=== PATIENT | male | born 1965 | race Caucasian/White ===

== ENCOUNTER 2019-02-24 10:11 | Emergency (ER) | payer OTHER, SELFPAY ==
[2019-02-24 10:12] VITALS: BP 144/88; PULSE 76; RESP 16; TEMP 36.7; O2SAT 98; BMI 24.3
--- NOTE | 2019-02-24 10:50 | RAD_ITS ---
STUDY: X-RAY CHEST REASON FOR EXAM: Male, 53 years old. Syncopal episode. TECHNIQUE: Single AP portable view of the chest. COMPARISON: None. FINDINGS: EKG electrodes are seen. Hyperinflation. Mild degree of increased markings in the lingular segment of the left upper lobe suggestive of atelectasis and/or early infiltrate. There is no demonstrated pleural abnormality. Normal size heart. Normal mediastinum and maira. Normal visualized pulmonary arteries. Normal visualized aortic arch and descending thoracic aorta. Normal visualized thoracic spine. Normal visualized ribs, clavicles, and shoulders. There is no demonstrated abnormality of the visualized soft tissue structures of the upper abdomen. RAD/Chest 1 View (Portable) IMPRESSION: Mild degree of increased markings in the lingular segment of the left upper lobe. This may represent either atelectasis and/or early infiltrate. Electronically Signed: Mejia Shah, at 11:20 EDT , Service support ,
--- NOTE | 2019-02-24 10:50 | EKG12_ITS ---
Test Reason : SYNCOPE Blood Pressure : / mmHG Vent. Rate : 062 BPM Atrial Rate : 062 BPM P-R Int : 174 ms QRS Dur : 090 ms QT Int : 394 ms P-R-T Axes : 067 078 042 degrees QTc Int : 399 ms Normal sinus rhythm Normal ECG Confirmed by ROCIO ALTAMIRANO ([id number]), digital editor YANET DUQUE ([id number]) on 02/28/2019 12:27:18 PM Referred By: STEVEN Confirmed By:ROCIO ALTAMIRANO
--- NOTE | 2019-02-24 10:50 | CT_ITS ---
STUDY: CT BRAIN WITHOUT CONTRAST REASON FOR EXAM: Male, 53 years old. Syncopal episode. RADIATION DOSAGE (If Supplied By Facility): CTDIvol = ( 44.99 ) mGy, DLP = ( 779.24 ) mGycm TECHNIQUE: Transaxial CT imaging of the brain was performed without administration of intravenous contrast material. Individualized dose optimization techniques were used for this CT. COMPARISON: No relevant priors. FINDINGS: Normal soft tissue structures. Normal calvarium. Normal size ventricles and extra-axial spaces for the patient's age. Normal white matter tracts of the cerebral hemispheres. Normal basal ganglia and thalami. Normal brainstem. Normal cerebellum. There is no intracranial hemorrhage. There are no findings of an acute ischemic infarction. Normal visualized paranasal sinuses. CT/Brain/Head without Contrast IMPRESSION: Normal unenhanced CT scan of the brain. Electronically Signed: Mejia Shah, at 11:21 EDT , Service support ,
--- NOTE | 2019-02-24 10:52 | ED.DCSUM_ITS ---
- ER Visit Summary Date of Service: 02/24/19 Chief Complaint: Near syncope History of Present Illness: The patient is a 53 M past medical history of high cholesterol and mild MS for which she is on no medications. 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 He works late last night and just grab some the eat coffee and something at [employer] late last night. He had some mild nausea. He said his been hot day been working a lot lately with many projects. And states today he was in a room where there was no air conditioning. He felt warm and felt like he might pass out. He was seated at the time. He denies actually losing consciousness. States he had a mild headache this morning when he woke up. It was not thunderclap. Is not a severe headache. He denies any problems moving his arms or legs. No trouble with his speech. He denies any dysuria. No vomiting or diarrhea. No melena. No chest pain or shortness of breath. No fever. Physical Examination: Well-appearing middle-aged male. Vital signs are stable afebrile. Initial blood pressure 144/88. Pulse ox 90% room air no signs of hypoxia.. He is in no distress. Patient is in good shape. H EENT exam normal. Pupils are unreactive light. No facial droop. No trauma. Neck nontender. No lymphadenopathy. Lungs clear to auscultation bilaterally. Heart regular rhythm rate about 75 no murmur. Chest were nontender. Abdomen soft nontender. Normal bowel sounds no peritoneal signs. Patient is moving all 4 extremities. Neurovascularly intact. No edema. Calves are nontender without cords. 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 Fingertip to nose within normal limits. Dorsi plantarflexion intact. Neurologic exam his NIH is 0. He has no focal motor or sensory deficits. Test Results: X-ray portable one view shows no acute abnormality. Mild atelectasis. Read both by myself and the radiologist. CT of the brain read as normal. Read by the radiologist reviewed by me. EKG sinus rhythm rate 66 no acute signs of CA or ischemia. No dysrhythmia. CBC normal. Chemistries normal. Normal creatinine and gap. Troponin normal. Orthostatic vital signs were normal. He did not have any significant change in his blood pressure nor did he have any lightheadedness or dizziness. Emergency Department Course and Treatment: Patient with near syncope however has a normal exam. Repeat exam at 1443 patient is doing well. He feels condyle being discharged home. We went over all his test results. Treatment Plan: Fluids and rest. Return if worse. Follow-up as needed. Disposition: Discharge Impression: Acute near syncope This note was generated with [employer] dictation software. It may contain incorrect words, spelling, and punctuation that were not noted in review of the chart prior to signing
[2019-02-24 11:00] LABS: Absolute Lymphocyte Count 2.26 X10^3/uL (0.83-4.51); Absolute Neutrophil Count 5.9 X10^3/uL (2.0-7.7); Basophil# 0.05 X10^3/uL; Basophil% 0.6 % (0-1); Eosinophil# 0.06 X10^3/uL; Eosinophils% 0.7 % (0-5); Hematocrit 52.6 % (40-54); Hemoglobin 17.6 g/dL (13.0-16.5); Lymphocyte # 2.26 X10^3/ul (4.0); Lymphocyte % 25.1 % (19-41); Mean Corp Hgb Conc 33.5 g/dL (32-36); Mean Corpuscular Hgb 31.8 pg (27.0-32.0); Mean Corpuscular Volume 95.1 fL (80-94); Mean Platelet Vol. 9.2 fl (6.2-12.0); Monocyte# 0.72 X10^3/uL; NRBC Flagged by Analyzer 0 % (0-5); Neutrophil # 5.87 X10^3/uL (2.7-7.7); Neutrophil % 65.3 % (47-70); Platelet Count 242 K/mm3 (150-450); RBC Distribution Width CV 13.1 % (11.6-14.6); RBC Distribution Width SD 46.3 fl (35.1-43.9); Red Blood Count 5.53 M/mm3 (4.6-6.2)
[2019-02-24 11:12] LABS: Anion Gap 4 (5-15); BUN 10 mg/dL (7-18); BUN/Creat Ratio 7.9 RATIO (10-20); Calcium,Total 9.2 mg/dL (8.5-10.1); Chloride 105 mmol/L (98-107); Creatinine, Serum 1.26 mg/dL (0.70-1.30); EST Glomerular Filtration Rate 63 mL/min (>60); Est Glom Filt Rate - Afr Amer 76 mL/min (>60); Estimated Creatinine Clearance 66.24 ml/min; Glucose 118 mg/dL (74-106); Potassium 4.1 mmol/L (3.5-5.1); Sodium Level 137 mmol/L (136-145)
[2019-02-24 11:47] VITALS: BP 119/85; BP 120/88; BP 125/86; PULSE 70; PULSE 78; PULSE 82
[2019-02-24 11:49] VITALS: BP 125/86; PULSE 69; O2SAT 97
[2019-02-24 11:55] VITALS: BP 125/86; PULSE 66; O2SAT 97
[2019-02-24 13:30] VITALS: BP 125/81; PULSE 62; RESP 18
[2019-02-24 14:41] VITALS: BP 126/79; PULSE 72; RESP 14; O2SAT 97
--- NOTE | 2019-02-24 14:45 | ED.DEP ---
ED Disposition - Plan for ED Patient: Disposition: Home or Assisted Living Instructions: NEAR SYNCOPE, Unknown Referrals: Tony Sullivan MD [STAFF PHYSICIAN] - 3-5 Days if not improving Additional Instructions: Your labs, EKG, chest x-ray and CAT scan today were all normal. I think this is secondary to just working a lot lately, being fatigued and being in a warm hot room. Plenty of fluids and rest. Follow-up with a local primary care physician as needed. Return to ER feeling worse.
== END 2019-02-24 14:50 | disposition home or self-care (01) ==
PROVIDERS: Emergency Provider Emergency Medicine
DX: R55 Syncope and collapse (principal); J98.11 Atelectasis; E78.00 Pure hypercholesterolemia, unspecified; G35 Multiple sclerosis; Z79.899 Other long term (current) drug therapy; F17.200 Nicotine dependence, unspecified, uncomplicated
CPT/HCPCS: 70450; 71045; 80048; 84484; 85025; 93005; 99285; A4216

== ENCOUNTER → 2019-06-28 10:21 | Outpatient (CLI) | payer OTHER, SELFPAY ==
--- NOTE | 2019-06-28 10:45 | RAD_ITS ---
STUDY: X-RAY CHEST REASON FOR EXAM: Male, 53 years old. PRE OP. NO CHEST COMPLAINTS. TECHNIQUE: Frontal and lateral views of the chest were performed COMPARISON: None. FINDINGS: The lungs are clear and expanded. There is no demonstrated pleural abnormality. Normal size heart. Normal mediastinum and maira. Normal visualized pulmonary arteries. Normal visualized aortic arch and descending thoracic aorta. Normal visualized thoracic spine. Normal visualized ribs, clavicles, and shoulders. There is no demonstrated abnormality of the visualized soft tissue structures of the upper abdomen. RAD/Chest PA and Lateral IMPRESSION: Normal x-ray examination of the chest. Electronically Signed: Lucy Randle, at 18:51 EST Tel , Service support ,
--- NOTE | 2019-06-28 10:59 | EKG12_ITS ---
Test Reason : PRE-OP Blood Pressure : / mmHG Vent. Rate : 066 BPM Atrial Rate : 066 BPM P-R Int : 162 ms QRS Dur : 094 ms QT Int : 388 ms P-R-T Axes : 067 076 036 degrees QTc Int : 406 ms Normal sinus rhythm Incomplete right bundle branch block Confirmed by FRAN RODRIGUEZ, ALAN ([id number]), assistant film editor SAWYER MALONE ([id number]) on 06/29/2019 9:04:13 AM Referred By: Patrick Chester Confirmed By:ALAN PETERS MD
[2019-06-28 12:48] LABS: Absolute Lymphocyte Count 2.45 X10^3/uL (0.83-4.51); Absolute Neutrophil Count 3.4 X10^3/uL (2.0-7.7); Basophil# 0.04 X10^3/uL; Basophil% 0.6 % (0-1); Eosinophil# 0.11 X10^3/uL; Eosinophils% 1.7 % (0-5); Hematocrit 49.3 % (40-54); Hemoglobin 16.7 g/dL (13.0-16.5); Lymphocyte # 2.45 X10^3/ul (4.0); Lymphocyte % 37.4 % (19-41); Mean Corp Hgb Conc 33.9 g/dL (32-36); Mean Corpuscular Hgb 31.7 pg (27.0-32.0); Mean Corpuscular Volume 93.5 fL (80-94); Mean Platelet Vol. 9.7 fl (6.2-12.0); Monocyte# 0.58 X10^3/uL; Monocyte% 8.9 % (0-10); NRBC Flagged by Analyzer 0 % (0-5); Neutrophil # 3.35 X10^3/uL (2.7-7.7); Neutrophil % 51.1 % (47-70); Platelet Count 231 K/mm3 (150-450); RBC Distribution Width CV 13.2 % (11.6-14.6); Red Blood Count 5.27 M/mm3 (4.6-6.2); White Blood Count 6.6 K/mm3 (4.4-11.0)
[2019-06-28 13:03] LABS: Hemoglobin A1c 5.9 % (4.2-6.3)
[2019-06-28 13:27] LABS: Anion Gap 5 (5-15); BUN 12 mg/dL (7-18); BUN/Creat Ratio 10.8 RATIO (10-20); Calcium,Total 9.3 mg/dL (8.5-10.1); Chloride 107 mmol/L (98-107); Creatinine, Serum 1.11 mg/dL (0.70-1.30); EST Glomerular Filtration Rate 73 mL/min (>60); Est Glom Filt Rate - Afr Amer 88 mL/min (>60); Glucose 83 mg/dL (74-106); Sodium Level 138 mmol/L (136-145)
[2019-06-28 14:13] LABS: Prothrombin Time (Protime)PT. 13.1 SECONDS (11.7-14.9)
[2019-06-28 14:42] LABS: Partial Thromboplast Time 33.5 Seconds (24.1-36.2)
== END ==
PROVIDERS: Referring Provider Podiatrist Foot & Ankle Surgery; Visit Provider Podiatrist Foot & Ankle Surgery
DX: Z01.811 Encounter for preprocedural respiratory examination (principal); Z01.818 Encounter for other preprocedural examination; Z01.810 Encounter for preprocedural cardiovascular examination
CPT/HCPCS: 36415; 71046; 80048; 83036; 85025; 85610; 85730; 93005

== ENCOUNTER 2019-07-07 09:05 | Day surgery (SDC) | payer OTHER, SELFPAY ==
[2019-07-07] VITALS (8 sets, daily range): BP systolic 87–116; BP diastolic 55–74; PULSE 60–70; RESP 16–18; TEMP 36.3–37.1; O2SAT 94–97; BMI 26.8
--- NOTE | 2019-07-07 09:27 | RAD_ITS ---
STUDY: X-RAY LEFT FOOT, 4 TOE REASON FOR EXAM: Male, 53 years old. 4TH LEFT HAMMER TOE CORRECTION TECHNIQUE: History view(s) of the toe were obtained. COMPARISON: None. FINDINGS: K wire transfixes the fourth PIP joint. Normal visualized metatarsus. Normal metatarsophalangeal (M.T.P) joint. Normal interphalangeal joints. Normal phalanges and interphalangeal joints. The soft tissue structures are unremarkable. RAD/Toe(s) Min 2 Views IMPRESSION: Fixation fourth PIP joint Electronically Signed: Umair Masterson MD at 22:57 EST , Service support ,
[2019-07-07] MEDS: Lactated Ringers 1,000 ML 100 ML IV (09:53)
[2019-07-07] MEDS: Cefazolin 2 GM in 0.9% Normal Saline 100 ML IV (10:58)
[2019-07-07] MEDS: Bupivacaine Mpf 0.5% 30 ML VIAL (12:06)
--- NOTE | 2019-07-07 12:25 | DCINST_ITS ---
Discharge Diet: No Restrictions Discharge Activity: May Not Shower Ice area for (Minutes): 20 Weight Bearing Status: Weight bearing as tolerated - to left foot in CAM boot only Keep extremity elevated above heart level: Left Leg Additional Activity Instructions:: Keep dressing to left foot clean, dry, intact. Do not get dressing wet. Protect dressing when bathing with a cast protector or plastic bag and tape. I recommend sponge bath only. If get dressing wet, call office for dressing change. Do not change dressing. Dressing will be changed in office at postoperative appointment. Ice around the left ankle 20 minutes on, 20 minutes off, every hour while awake for the next 7 days. Elevate left foot above level of heart as much as possible for the next 7 days. Take [id number] pain medication as needed and as directed on bottle. Begin taking antibiotic today, July 07 when getting home. You can walk and stand on left foot as tolerated as long as you are in the cam boot. Keep walking and standing activities to a minimum for the next 14 days. Call your doctor if your incision/area has: Continuous Slow Oozing, Sudden Increased Bleeding, Increased Pain/ Swelling, Increased Redness Call your doctor if you observe: Fever of 101 or Higher, Coldness, Increased Pain, Shortness of breath, Chest pain, Increased palpitations (irregular heartbeat), Calf discomfort, Uncontrolled pain Suture Line Care: Avoid Pulling/Pushing Cleanse incision/area with: Keep Dressing Clean & Dry Allergies/Adverse Reactions: Allergies bee venom protein (honey bee) Allergy (Verified 07/07/19 09:35) Anaphylaxis codeine Adverse Reaction (Verified 07/07/19 09:35) Nausea/Vom/Diarrhea Medications to take at Discharge Atorvastatin Calcium [Lipitor] 5 mg PO QHS 06/30/19 Sildenafil Citrate [Viagra] 100 mg PO PRN PRN 06/30/19 Multivit-Minerals/FA/Lycopene [One Daily Men's Health Tablet] 1 ea PO DAILY 07/07/19 Primary Care Physician: Darling Hogan MD [Primary Care Provider] - Test Results: Test results from this visit will be discussed in further detail at your follow- up appointment, if applicable. Please Follow Up With: Patrick Chester DPM When: as scheduled Proposed Discharge Date: 07/07/19
--- NOTE | 2019-07-07 12:28 | PCM.OPRPT ---
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 Painful hammertoe deformity fourth digit left foot. #2 abductovalgus deformity fourth digit left foot. Post-Operative Diagnosis: Same as preoperative Surgery/Procedure Performed:: 1. Arthroplasty of the proximal interphalangeal joint fourth digit left foot with implant placement for arthrodesis. #2 flexor tenotomy distal interphalangeal joint fourth digit left foot Description of Surgical Findings:: Consistent with diagnosis. Reduction of deformity achieved and held. 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: None Type of Anesthesia:: MAC/Supplemental/Local - With a local block given to the fourth digit of the left lower extremity consisting of 10 mL of 0.5 the Marcaine plain distributed in a ray block fashion to the fourth ray of the left foot Anesthesiologist: Tomasz Andrews Special Medications: 2 g of Ancef given preoperatively Specimen's removed: Head of the proximal phalanx fourth digit left foot Drains: None Estimated Blood Loss (mL): 2 Description of Procedure: Pathology: Head of proximal phalanx of fourth digit left foot Anesthesia: IV sedation with local block given to the left lower extremity consisting of 10 mL 0.5 % Marcaine plain distributed a ray block fashion of the fourth ray of the left foot. Hemostasis: Pneumatic calf tourniquet placed to the level left calf at 250 mmHg for 39 minutes Estimated blood loss: 2 mL Materials: #1. 0.045 K wire. 2. Size 4-0 Vicryl. 3. 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 Upon verbal questioning, patient relates that on March 05, 2019, he was working at his job when he slipped and fell. As he tried to catch himself, his left foot hit the curb outside. He felt immediate pain in his fourth toe. Patient then presented to me for further evaluation. Multiple tests were ordered, including an MRI, xray and an EMG/NCV. These related injury to the fourth toe of the left foot. It was found that there was a rigid hammertoe deformity of the proximal interphalangeal joint of the fourth digit of the left foot along with an adductovarus deformity of the distal interphalangeal joint of the fourth digit of the left foot. Multiple conservative therapies were employed, including but not limited to inserts, strengthening exercises, and walking in a pneumatic cam boot. All of these conservative therapies failed and patient was still experiencing pain. After multiple discussions were had with the patient, it was determined that surgical intervention to fix the deformity of the fourth toe would greatly benefit the patient and help and return to activities of daily living. Operative report: Before the patient was brought to the operating room, the risks, benefits, possible outcomes, possible complications of the procedure discussed with the patient. These included but not limited to DVT, infection, delayed or nonhealing wounds, delayed or nonhealing bone, loss of toe, loss of limb, loss of life. All the patient's questions were answered to his satisfaction and all of his concerns were addressed. No guarantees were made as to the outcome of the procedure. Patient understood all aspects of the procedure, and consent was then signed by the patient. The patient was then brought to the operating room and placed on the operating table in the supine position. After timeout, under IV sedation, 10 mL of 0.5 % Marcaine plain was distributed in a ray block fashion to the fourth ray of the left foot. Next, a well-padded pneumatic calf tourniquet was placed at the level of left calf. The left foot, ankle, leg were then scrubbed, prepped, draped in the usual sterile manner. Elevation of the left lower extremity was followed by exsanguination via Esmarch and inflation pneumatic calf tourniquet to 250 mmHg. Attention was then directed to the dorsal aspect of the fourth digit left foot. At this time, a linear longitudinal incision was made starting the dorsal aspect of the midshaft of the proximal phalanx extending distally to the dorsal aspect of the base of the distal phalanx. This incision was deepened utilizing sharp and blunt dissection. Care was taken to retract all vital neural and vascular structures. All bleeders were cauterized and ligated as necessary. At this time, the proximal to phalangeal joint was then identified. Next, a transverse extensor tenotomy was performed. The extensor tendon was then reflected back proximally. Next, the medial and lateral collateral ligaments were sharply incised. At this time, the head of the proximal phalanx was fully exposed with no soft tissue attachments. Next, the cartilage was resected off the head of the proximal phalanx utilizing a sagittal bone saw. This was then removed from the operative site. Next, the cartilage at the base of the middle phalanx was resected utilizing a sagittal bone saw. This was then removed from the operative site. Cancellus bone was identified in both areas. At this time, a K wire was inserted into the medullary canal of the proximal phalanx. Positioning of this was confirmed upon radiographic evaluation, and care was taken to make sure that was in the center of the medullary canal. Once identified, this K wire was then clipped and the middle phalanx and rest of the fourth digit of the left foot were then placed over the remaining K wire to hold the proximal interphalangeal joint in the corrected position. Radiographic evaluation was then performed. The K wire was noted to hold the proximal interphalangeal joint in the corrected reduced position. Furthermore, the K wire was noted to be centered in the medullary canal of both the middle and the proximal phalanges. The K wire was noted to not be too long or too short. Attention was then directed the dorsal aspect of the distal interphalangeal joint of the surgical site. Next, an extensor tenotomy was performed in the area of the distal interphalangeal joint. Dissection was continued down deep to the level of the flexor tendon. This was then sharply incised. At this time, inspection of the deformity was performed. The hammertoe deformity and the abducted varus deformity was noted to be reduced from preoperative assessment. At this time the surgical site was then irrigated with copious amounts of normal sterile saline. The extensor tendons were reapproximated and coapted utilizing 4-0 Vicryl. The subcutaneous tissue was reapproximated coapted utilizing 4-0 Vicryl. The skin was reapproximated and coapted using 4-0 nylon in a simple interrupted and horizontal mattress fashion. At this time, the pneumatic calf tourniquet was then released and a prompt hyperemic response noted to the entirety of the left lower extremity. Furthermore, hyperemic response noted to the fourth digit of the left foot. Neurovascular status was assessed and deemed intact to the fourth digit of the left foot. At this time, the surgical site was then dressed with Betadine soaked gauze, and a dry sterile dressing consisting of 4 x 4 gauze wrapped with Kerlix. The left foot and ankle were then wrapped with an Marcin bandage. Neurovascular status was assessed again at the end of the application of the dressing was deemed intact of the all digits of the left foot. The patient tolerated the anesthesia and the procedure well and was transported to the PACU with vital signs stable and neurovascular status intact to left lower extremity. After period of postoperative monitoring, patient will be discharged home with written and oral instructions for wound care and follow-up. Grafts/Implants Used: 0.045 K wire - Complications None - Admit VTE Documentation VTE Present on Admission: No VTE Mechan Device Prophylaxis: SCD's VTE Pharm Prophylaxis ordered?: No Reason prophylaxis not ordered:: Procedure Not Indicated
== END 2019-07-07 13:27 | disposition home or self-care (01) ==
LOC: SDC 09:06 → AC 09:07
PROVIDERS: PCP Family Medicine; Referring Provider Podiatrist Foot & Ankle Surgery; Visit Provider Podiatrist Foot & Ankle Surgery
PROC: (CPT 28285; principal; 2019-07-07 10:45)
DX: M20.42 Other hammer toe(s) (acquired), left foot (principal); M20.5X2 Other deformities of toe(s) (acquired), left foot; S97.82XD Crushing injury of left foot, subsequent encounter; S93.492D Sprain of other ligament of left ankle, subsequent encounter; W01.0XXD Fall on same level from slipping, tripping and stumbling without subsequent striking against object, subsequent encounter; E78.00 Pure hypercholesterolemia, unspecified; E66.3 Overweight; Z68.25 Body mass index [BMI] 25.0-25.9, adult; Z79.899 Other long term (current) drug therapy; F17.210 Nicotine dependence, cigarettes, uncomplicated
CPT/HCPCS: 01470; 28285; 73660; 76000; J7120; J2405

== ENCOUNTER → 2019-09-05 08:42 | Outpatient (CLI) | payer OTHER, SELFPAY ==
[2019-07-07 09:39] VITALS: BMI 26.8
--- NOTE | 2019-09-05 08:45 | CT_ITS ---
STUDY: LOW DOSE CT LUNG CANCER SCREENING REASON FOR EXAM: Male, 53 years old. TOBACCO ABUSE, PREV CIGARETTE SMOKER X 30 YRS 1/2 PPD, CURRENTLY SMOKES 2 CIGARS PER DAY. [id number] RADIATION DOSAGE (If Supplied By Facility): CTDIvol = ( 3.02 ) mGy, DLP = ( 118.9 ) mGycm TECHNIQUE: No contrast was administered. Low dose technique was utilized (average mAS-38 and kVp 120). 1.25 mm axial source images with a slice interval of 1.25-mm were reconstructed in lung windows. 2.5 mm axial source images with a slice interval of 2.5-mm were reconstructed in lung windows. 5.0 mm axial source images with a slice interval of 5.0-mm were reconstructed in soft tissue windows. Nodule measured using lung windows on PACS and/or independent workstation with automated measurement of minimum and maximum diameter. Nodule measurement reported as average diameter rounded to the nearest whole number. Growth is defined as an increase ins size of greater than 1.5 mm. COMPARISON: Comparison is made with prior chest radiograph dated June 28, 2019. Emphysema: Mild degree of emphysematous changes worse in the upper lobes and medial aspect of the left upper lobe with bleb formation. Focal increased linear markings in the lingular segment of the left upper lobe laterally. This is suggestive of scarring. Linear density in the posterior medial segment of the right lower lobe suggestive of linear scarring as well. Aorta: Minimal atherosclerotic plaque of the aortic arch. Coronary arteries: Coronary artery calcification. Heart: Not enlarged. Pulmonary artery: Unremarkable. Mediastinal nodes: Small benign appearing mediastinal lymph nodes. CT/Low Dose CT Lung Screening IMPRESSION: Lung-RADS category 2 - Continue annual screening with LDCT in 12 months. IMPORTANT NOTES FOR USE: ACR Lung-RADS Version 1.0 Assessment Categories Release Date: September 19, 2013 Category: Coded 0-4 bases on nodule(s) with highest degree of suspicion. Negative screen is defined as categories 1 and 2; a positive screen is defined as categories 3 and 4. Category 3 and 4A nodules that are unchanged on interval CT should be coded as category 2, and individuals returned to screening in 12 months. Category 4X: Category 3 or 4 nodules with additional imaging findings that increase the suspicion of lung cancer, such as spiculation, GGN that doubles in size in 1 year, enlarged lymph notes, etc. Category Modifiers: S (significant finding unrelated to lung cancer) and C (prior history of treated lung cancer) may be added to the 0-4 Lung-RADS Electronically Signed: Mejia Shah, at 9:45 EDT , Service support ,
== END ==
PROVIDERS: PCP Family Medicine; Referring Provider Family Medicine; Visit Provider Family Medicine
DX: Z12.2 Encounter for screening for malignant neoplasm of respiratory organs (principal)
CPT/HCPCS: G0297

== ENCOUNTER 2020-01-06 11:13 | Emergency (ER) | payer OTHER, SELFPAY ==
[2019-07-07 09:39] VITALS: BMI 26.8
[2020-01-06 11:15] VITALS: BP 134/96; PULSE 67; RESP 16; TEMP 36.4; O2SAT 99; BMI 26.5
--- NOTE | 2020-01-06 11:23 | EKG12_ITS ---
Test Reason : CP Blood Pressure : / mmHG Vent. Rate : 066 BPM Atrial Rate : 066 BPM P-R Int : 168 ms QRS Dur : 102 ms QT Int : 394 ms P-R-T Axes : 070 082 043 degrees QTc Int : 413 ms Normal sinus rhythm with sinus arrhythmia Incomplete right bundle branch block Moderate voltage criteria for LVH, may be normal variant Borderline ECG Confirmed by SIDDHARTHA RODRIGUEZ, ROSALINDA ([id number]), image editor YANET DUQUE ([id number]) on 01/09/2020 2:33:45 PM Referred By: KEYON/LAKSHMI Confirmed By:ROSALINDA CARL MD
[2020-01-06] MEDS: 0.9% Normal Saline 1,000 ML 1000 ML IV (11:27)
[2020-01-06] MEDS: Aspirin 81 MG TAB.CHEW 324 MG PO (11:27)
[2020-01-06 11:28] VITALS: O2SAT 98
--- NOTE | 2020-01-06 11:35 | RAD_ITS ---
STUDY: X-RAY CHEST REASON FOR EXAM: Male, 54 years old. Chest pain TECHNIQUE: Single AP portable view of the chest. COMPARISON: Comparison is made with prior study of 06/28/2019. 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 Stable minimal increased markings at the left lung base suggestive of linear scarring. There is no demonstrated pleural abnormality. Normal size heart. Normal mediastinum and maira. Normal visualized pulmonary arteries. Normal visualized aortic arch and descending thoracic aorta. Normal visualized thoracic spine. Normal visualized ribs, clavicles, and shoulders. There is no demonstrated abnormality of the visualized soft tissue structures of the upper abdomen. RAD/Chest 1 View (Portable) IMPRESSION: Stable mild increased linear markings at the left lung base suggestive of scarring. Electronically Signed: Mejia Shah, at 12:17 EDT , Service support ,
[2020-01-06 11:40] LABS: Absolute Lymphocyte Count 2.61 X10^3/uL (0.83-4.51); Absolute Neutrophil Count 5.3 X10^3/uL (2.0-7.7); Basophil# 0.06 X10^3/uL; Basophil% 0.7 % (0-1); Eosinophil# 0.06 X10^3/uL; Eosinophils% 0.7 % (0-5); Hematocrit 53.4 % (40-54); Lymphocyte # 2.61 X10^3/ul (4.0); Lymphocyte % 30.4 % (19-41); Mean Corp Hgb Conc 33.9 g/dL (32-36); Mean Corpuscular Hgb 32.2 pg (27.0-32.0); Mean Platelet Vol. 9.4 fl (6.2-12.0); Monocyte# 0.58 X10^3/uL; Monocyte% 6.8 % (0-10); NRBC Flagged by Analyzer 0 % (0-5); Neutrophil # 5.26 X10^3/uL (2.7-7.7); Neutrophil % 61.2 % (47-70); Platelet Count 229 K/mm3 (150-450); RBC Distribution Width CV 13.3 % (11.6-14.6); RBC Distribution Width SD 47.4 fl (35.1-43.9); Red Blood Count 5.62 M/mm3 (4.6-6.2); White Blood Count 8.6 K/mm3 (4.4-11.0)
[2020-01-06 11:43] LABS: Hemoglobin 18.1 g/dL (13.0-16.5)
[2020-01-06 11:44] LABS: Differential Indicated SCAN CRITERIA MET
--- NOTE | 2020-01-06 11:45 | ED.VIS.CHEST ---
History of Present Illness Informant: Patient Onset: Days - 3 days Activity at onset: Sleep Timing: Continuous Quality: Sharp, Stabbing Location: Substernal Current Severity: Mild Maximum Severity: Severe Worsened By: Nothing Relieved By: Nothing Associated Symptoms: Negative for: Nausea, Vomiting, Diaphoresis, Dyspnea, Cough, Fever, Lightheadedness, Acid Reflux, Palpitations Narrative: 54-year-old male presents to the emergency department with chest pain. Patient woke up in the middle the night with chest pain 3 days ago and has had consistent pain since that time. It is sharp and stabbing. It does not radiate. It is been constant. Nothing really makes it better or worse. It is not exertional. He denies any associated shortness of breath, lightheadedness, dizziness, nausea or vomiting, leg pain or swelling, hemoptysis, fevers, cough or sick contacts. He had a cardiac catheterization 8 years ago that was negative. 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 He is concerned this may be due to stress. He denies any other review of systems at this time. Prior Similar Symptoms: No Recent Illness/Hospitalization: No CVD Risk Factors: Hypercholesterolemia. Negative for: Hypertension, Diabetes, Family History 1' </=55, Smoking PE Risk Factors: Negative for: Recent Travel/Surgery, Recenet Immobilization, Prior DVT or PE, Cancer, OCP + Smoking + >/=35 TAD Risk Factors: Negative for: Marfan's Syndrome, Hypertension, Family History Chief Complaint: Chest Pain Past Medical History Prior records reviewed: Yes Past Medical History: - - hyperlipidemia Surgical History: no surgical history Lives: With Family Smoking Status: Former smoker Alcohol: Occasional Drugs: None - Allergies and Home Meds Allergies/Adverse Reactions: Allergies bee venom protein (honey bee) Allergy (Verified 01/06/20 11:20) Anaphylaxis codeine Adverse Reaction (Verified 01/06/20 11:20) Nausea/Vom/Diarrhea Primary Care Physician: Darling Hogan MD [Primary Care Provider] - Review of Systems All systems negative except as indicated General: Denies: Chills, Fever, Sweats Eyes: Denies: Visual changes - bilaterally, Diplopia ENT: Denies: Rhinorrhea, Sore throat Cardiovascular: Reports: Chest pain. Denies: Palpitations, Heart racing Respiratory: Denies: Dyspnea, Cough, Sputum, Dyspnea on exertion, Orthopnea, Paroxysmal nocturnal dyspnea Gastrointestinal: Denies: Abdominal pain, Nausea, Vomiting, Diarrhea, Melena, Hematochezia Genitourinary: Denies: Dysuria, Hematuria, Frequency Musculoskeletal: Denies: Back pain, Swelling, Extremity Pain Skin: Denies: Rash, Wounds Neurological: Denies: Headache, Weakness, Parasthesia, Numbness Physical Exam Vital Signs/Narrative: Vital Signs Temp Pulse Resp BP Pulse Ox 01/06/20 11:28 98 01/06/20 11:15 97.6 F L 67 16 134/96 H 99 Inital Vital Signs reviewed: Yes General: Well nourished, Well developed, No Acute Distress Head: Normocephalic, Atraumatic Eyes: Perrl, EOMI ENT: Moist mucous membranes, No rhinorrhea Neck: Supple, Nontender Cardiovascular: Regular rate, Regular rhythm, No murmurs Respiratory: No distress, CTA bilaterally, Chest nontender Abdomen: Soft, Nontender, Nondistended, Normal bowel sounds Back: Nontender, Normal Inspection Extremities: Nontender, No edema, - - Normal palpable pulses all 4 extremities Skin: Normal color, No rash Neurological: Alert, Oriented x3, Cranial nerves II-XII grossly intact, Normal Strength, Normal Sensation Psychological: Normal affect, Normal Mood Diagnostic/Tx/Re-eval Chest X-Ray - ED: 1 View, Read by ED Physician, Read by Radiologist, No Acute Disease Impressions Chest X-Ray 01/06/20 11:35 IMPRESSION: Stable mild increased linear markings at the left lung base suggestive of scarring. Electronically Signed: Mejia Shah, at 12:17 EDT , Service support , 01/06/20 11:35 Chest 1 View (Portable) [RAD] Stat Laboratory Results 01/06/20 01/06/20 01/06/20 11:16 11:16 14:23 WBC 8.6 RBC 5.62 Hgb 18.1 H* Hct 53.4 MCV 95.0 H MCH 32.2 H MCHC 33.9 RDW Std Deviation 47.4 H RDW Coeff of Steve 13.3 Plt Count 229 MPV 9.4 Immature Gran % (Auto) 0.200 Neut % (Auto) 61.2 Lymph % (Auto) 30.4 [place] % (Auto) 6.8 Eos % (Auto) 0.7 Baso % (Auto) 0.7 Absolute Neuts (auto) 5.3 Absolute Lymphs (auto) 2.61 Nucleated RBC % 0 Diff Path Review May foll Sodium 139 Potassium 3.9 Chloride 108 H Carbon Dioxide 27.0 Anion Gap 4 L BUN 6 L Creatinine 1.15 Estim Creat Clear Calc 71.72 Est GFR (MDRD) Af Amer 85 Est GFR (MDRD) Non-Af 70 BUN/Creatinine Ratio 5.2 L Glucose 99 Calcium 9.0 Troponin I < 0.015 < 0.015 - Rhythm Strip Rhythm Strip: Sinus Rhythm Rate: 58 Ectopy: None - EKG Initial EKG Interpretation: Sinus Rhythm, No Acute Injury Pattern Prior: Unchanged Follow-up EKG Interpretation: Sinus Rhythm, No Acute Injury Pattern Prior: Unchanged Treatment: Aspirin Repeat Eval: Pain Free JOHN Risk: No Positive JOHN Elements Score: 0 - Medical Decision Making EKG on arrival sinus rhythm no signs of acute ischemic change. He was given aspirin. CBC BMP and troponin all are unremarkable. Chest x-ray unremarkable. Repeat EKG was unchanged and his second troponin negative. Heart score is 2. Will be discharged home. We will follow-up with his primary care. ED Disposition - Plan for ED Patient: Disposition: Home or Assisted Living Diagnosis: Chest pain Instructions: ED Chest Pain Atypical Unkn Cause Referrals: Darling Hogan MD [Primary Care Provider] -
[2020-01-06 12:03] LABS: Anion Gap 4 (5-15); BUN 6 mg/dL (7-18); BUN/Creat Ratio 5.2 RATIO (10-20); Chloride 108 mmol/L (98-107); Creatinine, Serum 1.15 mg/dL (0.70-1.30); EST Glomerular Filtration Rate 70 mL/min (>60); Est Glom Filt Rate - Afr Amer 85 mL/min (>60); Estimated Creatinine Clearance 71.72 ml/min; Glucose 99 mg/dL (74-106); Potassium 3.9 mmol/L (3.5-5.1); Sodium Level 139 mmol/L (136-145)
[2020-01-06 12:50] VITALS: BP 116/83; PULSE 59; RESP 17; O2SAT 98
--- NOTE | 2020-01-06 13:37 | EKG12_ITS ---
Test Reason : REPEAT Blood Pressure : / mmHG Vent. Rate : 058 BPM Atrial Rate : 058 BPM P-R Int : 180 ms QRS Dur : 094 ms QT Int : 404 ms P-R-T Axes : 065 073 034 degrees QTc Int : 396 ms Sinus bradycardia Incomplete right bundle branch block Minimal voltage criteria for LVH, may be normal variant Borderline ECG Confirmed by SIDDHARTHA RODRIGUEZ, ROSALINDA ([id number]), news assignment editor YANET DUQUE ([id number]) on 01/09/2020 2:33:08 PM Referred By: HAYDEN Confirmed By:ROSALINDA CARL MD
[2020-01-06 14:40] VITALS: BP 129/86; PULSE 74; RESP 16; O2SAT 98
[2020-01-06 15:20] VITALS: BP 131/77; PULSE 59; RESP 18; O2SAT 97
--- NOTE | 2020-01-06 15:20 | ED.RN ---
THIS NURSE REVIEWED D/C INSTRUCTIONS WITH PT AND . PT VERBALIZED UNDERSTANDING OF INSTRUCTIONS. IV D/C. IV CATHETER INTACT. PT TOLERATED WELL. PT DENIES FURTHER NEEDS OR QUESTIONS AT THIS TIME. PT AMBULATES FROM ROOM ON OWN WITHOUT ASSISTANCE FROM STAFF
[2020-01-09 12:28] LABS: Pathologist Review Reviewed
== END 2020-01-06 15:22 | disposition home or self-care (01) ==
PROVIDERS: Emergency Provider Physician Assistant Medical; PCP Family Medicine
DX: R07.9 Chest pain, unspecified (principal); E78.00 Pure hypercholesterolemia, unspecified; Z79.899 Other long term (current) drug therapy; Z87.891 Personal history of nicotine dependence
CPT/HCPCS: 71045; 80048; 84484; 85025; 93005; 96360; 96361; 99285; J7030; A4216

== ENCOUNTER → 2020-02-24 08:27 | Outpatient (CLI) | payer OTHER, SELFPAY ==
[2020-02-24 12:16] LABS: Absolute Lymphocyte Count 1.92 X10^3/uL (0.83-4.51); Absolute Neutrophil Count 5.6 X10^3/uL (2.0-7.7); Basophil# 0.04 X10^3/uL; Basophil% 0.5 % (0-1); Eosinophil# 0.06 X10^3/uL; Eosinophils% 0.7 % (0-5); Hematocrit 52.7 % (40-54); Hemoglobin 17.6 g/dL (13.0-16.5); Lymphocyte # 1.92 X10^3/ul (4.0); Lymphocyte % 23.4 % (19-41); Mean Corp Hgb Conc 33.4 g/dL (32-36); Mean Corpuscular Hgb 31.9 pg (27.0-32.0); Mean Corpuscular Volume 95.5 fL (80-94); Mean Platelet Vol. 9.9 fl (6.2-12.0); Monocyte# 0.58 X10^3/uL; Monocyte% 7.1 % (0-10); NRBC Flagged by Analyzer 0 % (0-5); Neutrophil # 5.58 X10^3/uL (2.7-7.7); Neutrophil % 68.1 % (47-70); Platelet Count 252 K/mm3 (150-450); RBC Distribution Width CV 13.7 % (11.6-14.6); Red Blood Count 5.52 M/mm3 (4.6-6.2); White Blood Count 8.2 K/mm3 (4.4-11.0)
[2020-02-24 12:39] LABS: BUN 10 mg/dL (7-18); Creatinine, Serum 1.16 mg/dL (0.70-1.30); EST Glomerular Filtration Rate 69 mL/min (>60); Glucose 95 mg/dL (74-106)
[2020-02-24 12:40] LABS: AST(SGOT) 15 U/L (15-37); Alanine Aminotransfer ALT/SGPT 22 U/L (16-61); Albumin, Serum 3.8 g/dL (3.2-5.0); Alkaline Phosphatase 95 U/L (45-117); Anion Gap 4 (5-15); BUN/Creat Ratio 8.6 RATIO (10-20); Calcium,Total 8.8 mg/dL (8.5-10.1); Chloride 108 mmol/L (98-107); Cholesterol 248 mg/dL (200); Est Glom Filt Rate - Afr Amer 84 mL/min (>60); Globulin 3.7 g/dL (2.2-4.2); High Density Lipoprotein 43 mg/dL; PSA,Total - Annual Screen 1.04 ng/mL (0.00-4.00); Potassium 4.3 mmol/L (3.5-5.1); Protein, Total 7.5 g/dL (6.4-8.2); Sodium Level 137 mmol/L (136-145); Triglycerides 131 mg/dL; Very Low Density Lipoprotein 26 mg/dL (5-40)
== END ==
PROVIDERS: PCP Family Medicine; Visit Provider Family Medicine
DX: Z00.00 Encounter for general adult medical examination without abnormal findings (principal); E78.5 Hyperlipidemia, unspecified; G35 Multiple sclerosis; N52.9 Male erectile dysfunction, unspecified
CPT/HCPCS: 36415; 80053; 80061; 84153; 85025; G0103

== ENCOUNTER 2020-08-07 09:16 | Outpatient (RCR) | payer OTHER, SELFPAY ==
[2020-08-07] MEDS: COVID-19 VACC, MRNA(PFIZER)/PF 30 MCG/0.3 ML SYRINGE IM (07:07)
[2020-08-28] MEDS: COVID-19 VACC, MRNA(PFIZER)/PF 30 MCG/0.3 ML SYRINGE IM (06:55)
== END 2020-10-30 23:59 ==
LOC: IMMUN 09:16
PROVIDERS: PCP Family Medicine; Visit Provider Family Medicine
DX: Z23 Encounter for immunization (principal)
CPT/HCPCS: 0001A; 0002A; 91300

== ENCOUNTER → 2020-09-18 15:42 | Outpatient (CLI) | payer OTHER, SELFPAY ==
--- NOTE | 2020-09-18 15:48 | CT_ITS ---
STUDY: LOW DOSE CT LUNG CANCER SCREENING REASON FOR EXAM: Male, 54 years old. LUNG CA SCREENING RADIATION DOSAGE (If Supplied By Facility): CTDIvol = ( 3.02 ) mGy, DLP = ( 114.38 ) mGycm TECHNIQUE: No contrast was administered. Low dose technique was utilized (average mAS-38 and kVp 120). 1.25 mm axial source images with a slice interval of 1.25-mm were reconstructed in lung windows. 2.5 mm axial source images with a slice interval of 2.5-mm were reconstructed in lung windows. 5.0 mm axial source images with a slice interval of 5.0-mm were reconstructed in soft tissue windows. Nodule measured using lung windows on PACS and/or independent workstation with automated measurement of minimum and maximum diameter. Nodule measurement reported as average diameter rounded to the nearest whole number. Growth is defined as an increase ins size of greater than 1.5 mm. COMPARISON: Comparison is made with prior examination dated 09/05/2019. NODULES: No suspicious nodules are seen. Emphysema: Hyperinflation. Emphysematous changes. Focal linear scarring is seen in the lingular segment of the left upper lobe. This is pleural based. Stable bulla in the upper lobes. Endobronchial lesion: None Aorta: Atherosclerotic plaque formation of the aortic arch. Coronary arteries: Coronary artery calcification. Heart: Unremarkable Pulmonary artery: Unremarkable Mediastinal nodes: Small benign appearing mediastinal lymph nodes. Other chest and abdominal findings: CT/Low Dose CT Lung Screening IMPRESSION: Lung-RADS category 2 - Continue annual screening with LDCT in 12 months. IMPORTANT NOTES FOR USE: ACR Lung-RADS Version 1.1 Assessment Categories Release Date: 2018 Category: Coded 0-4 bases on nodule(s) with highest degree of suspicion. Negative screen is defined as categories 1 and 2; a positive screen is defined as categories 3 and 4. Category 3 and 4A nodules that are unchanged on interval CT should be coded as category 2, and individuals returned to screening in 12 months. Category 4X: Category 3 or 4 nodules with additional imaging findings that increase the suspicion of lung cancer, such as spiculation, GGN that doubles in size in 1 year, enlarged lymph notes, etc. Category Modifiers: S (significant finding unrelated to lung cancer) Electronically Signed: Mejia Shah MD at 9:41 EDT , Service support ,
== END ==
PROVIDERS: PCP Family Medicine; Referring Provider Family Medicine; Visit Provider Family Medicine
DX: Z12.2 Encounter for screening for malignant neoplasm of respiratory organs (principal)
CPT/HCPCS: 71271

== ENCOUNTER 2021-04-03 09:26 | Emergency (ER) | payer OTHER, SELFPAY ==
[2021-04-03 09:27] VITALS: BP 147/88; PULSE 89; RESP 16; TEMP 36.1; O2SAT 99; BMI 25.1
--- NOTE | 2021-04-03 09:45 | EKG12_ITS ---
Test Reason : CP ANXIETY Blood Pressure : / mmHG Vent. Rate : 078 BPM Atrial Rate : 078 BPM P-R Int : 154 ms QRS Dur : 104 ms QT Int : 372 ms P-R-T Axes : 075 076 037 degrees QTc Int : 424 ms Normal sinus rhythm with sinus arrhythmia Normal ECG Confirmed by FRAN RODRIGUEZ, ALAN ([id number]), online content editor SAWYER MALONE ([id number]) on 04/04/2021 11:36:46 AM Referred By: AMADOU Confirmed By:ALAN PETERS MD
--- NOTE | 2021-04-03 09:47 | EDS_ITS ---
HPI History of Present Illness Chief Complaint: Chest Pain Informant: patient Narrative Narrative: 55-year-old male presents the emergency department for the evaluation of chest pain. Patient has a history of MS and states he believes he is having a flare. He is feeling tightness in his face neck chest leg. He states the vision of his left eye seems different. States he is he was sitting in a meeting began panting with chest discomfort. States that he has some baclofen at home that he takes which seems to help his MS flares but it is very sedating. He notes that during the pandemic work has been extremely stressful as they do not have enough staff. 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 He states he has been getting roughly 3 hours of sleep at night. [facility] Medical History HLD (hyperlipidemia) Multiple sclerosis Home Medications atorvastatin 5 mg PO QHS 06/30/19 [History Last Taken 01/06/20] sildenafil 100 mg PO PRN PRN 06/30/19 [History Last Taken Unknown] multivit with [id number]-OR-[id number] 1 ea PO DAILY 07/07/19 [History Last Taken 01/06/20] baclofen 10 mg PO PRN PRN 04/03/21 [History Last Taken Unknown] methylprednisolone 4 mg PO UD #1 box 04/03/21 [Rx Last Taken Unknown] Allergy/AdvReac Type Severity Reaction Status Date / Time bee venom protein (honey bee) Allergy Anaphylaxis Verified 01/06/20 11:20 codeine AdvReac Nausea/Vom/ Verified 01/06/20 11:20 Diarrhea Social History (Updated 04/03/21 @ 09:[address] Anatoly Mcadams DO) Smoking Status: Current some day smoker tobacco type: cigars substance use type: does not use ROS ROS ED Constitutional Constitutional ED: Denies chills, fever(s) or weight loss Eyes Eyes: Reports change in vision; Denies diplopia ENT ENT ED: Denies ear pain, rhinorrhea or sore throat Cardiovascular Cardiovascular: Reports chest pain; Denies orthopnea, palpitations or racing heartbeat Respiratory/Chest Respiratory/Chest: Reports dyspnea; Denies cough or orthopnea Gastrointestinal Gastrointestinal: Denies abdominal pain, diarrhea, nausea or vomiting Genitourinary Genitourinary ED: Denies dysuria, hematuria or urinary frequency Musculoskeletal Musculoskeletal: Reports myalgias and neck pain; Denies arthralgias Integumentary Denies abscess or rash Neurologic Neurologic: Denies headache(s) or weakness Psychiatric Psychiatric: Denies anxiety, depression, suicidal ideation or suicidal thoughts Endocrine Endocrinology: Denies polydipsia, polyphagia or polyuria Allergic/Immunologic Allergic/Immunologic ED: Denies mouth swelling, tongue swelling or urticaria EXAM Physical Exam Const Vital Signs: 04/03/21 09:27 04/03/21 09:31 Temperature 97 F L Temperature Source Temporal Pulse Rate 89 Respiratory Rate 16 Respiratory Effort Normal Non-Labored Respiratory Pattern Normal Blood Pressure 147/88 H Blood Pressure Mean 107 Pulse Ox 99 Oxygen Delivery Method Room Air Positive well nourished and well developed General Appearance ED: well developed HEENT Reports normocephalic, head/scalp atraumatic, TM's clear and moist mucous membranes Negative for trauma Tympanic Membrane ED: Yes TM's clear Eyes PERRL and EOMs intact bilaterally Neck no lymphadenopathy, supple and no JVD Resp normal respiratory effort and clear to auscultation bilaterally Cardio regular rate, regular rhythm and no murmurs GI normal to inspection, nondistended, normoactive bowel sounds and non-tender Palpation: soft Back/Spine no CVA tenderness and normal ROM Extremity normal to inspection General Extremety ED: Negative for edema General Extremity: Negative for edema Neuro oriented x3 and CN's II-XII intact bilaterally Sensorium / Orientation: alert Motor Exam: strength 5/5 throughout Psych mental status grossly normal Mood & Affect: Negative for depressed or tearful Skin no rashes or lesions noted and no wounds MDM MDM MDM Narrative Medical decision making narrative: Basic blood work showed a leukocytosis of 16.1. In light that he does not have any infectious symptoms is difficult to know exactly what this one-time reading means. I recommended to the patient that he have his family physician repeat the CBC. My interpretation of the chest x-ray is no acute process. Cardiac arevalo he is stable with a normal sinus rhythm with no symptoms concerning features of ACS and a normal troponin. Patient will be is prescribed a short course of methylprednisolone for his MS flare. I would also recommend that he try to rest as much as possible. Lab Data Attestation: I reviewed the patient's lab results. Labs: Laboratory Results - last 24 hr 04/03/21 04/03/21 09:35 09:35 WBC 16.1 H RBC 5.17 Hgb 16.4 Hct 48.0 MCV 92.8 MCH 31.7 MCHC 34.2 RDW Std Deviation 44.5 H RDW Coeff of Steve 13.1 Plt Count 229 MPV 9.4 Immature Gran % (Auto) 0.300 Neut % (Auto) 75.9 H Lymph % (Auto) 16.2 L [place] % (Auto) 7.0 Eos % (Auto) 0.2 Baso % (Auto) 0.4 Absolute Neuts (auto) 12.2 H Absolute Lymphs (auto) 2.61 Nucleated RBC % 0 Sodium 139 Potassium 3.7 Chloride 109 H Carbon Dioxide 23.0 Anion Gap 7 BUN 8 Creatinine 1.02 Estim Creat Clear Calc 79.90 Est GFR (MDRD) Af Amer 97 Est GFR (MDRD) Non-Af 80 BUN/Creatinine Ratio 7.8 L Glucose 117 H Calcium 8.7 Total Bilirubin 0.70 AST 22 ALT 33 Alkaline Phosphatase 106 Troponin I High Sens 6 Total Protein 7.4 Albumin 3.7 Globulin 3.7 Albumin/Globulin Ratio 1.0 EKG Initial EKG: Attestation: I personally reviewed and interpreted this EKG as follows: Comments: Normal sinus rhythm with a ventricular rate of 78 bpm Discharge Plan Triage Chief Complaint: Chest Pain ED Provider: Anatoly Mcadams Dx/Rx/DC Orders Clinical Impression: Multiple sclerosis exacerbation, Chest pain Instructions: Multiple Sclerosis Prescriptions: New methylprednisolone [methylprednisolone] 4 MG tablets,dose pack 4 mg PO UD Qty: 1 RF: 0 No Action atorvastatin 10 MG tablet 5 mg PO QHS RF: 0 sildenafil 100 MG tablet 100 mg PO PRN PRN (Reason: ed) RF: 0 multivit with [id number]-[id number] 1 EACH tablet 1 ea PO DAILY RF: 0 baclofen 10 mg tablet 10 mg PO PRN PRN (Reason: muscles) RF: 0 Primary Care Provider: Darling Hogan Referrals: Darling Hogan MD [Primary Care Provider] - As Needed Disposition Disposition: Home, Self Care
[2021-04-03] MEDS: Ketorolac 30 MG/ML Syringe IV (10:07)
[2021-04-03] MEDS: 0.9% Normal Saline 1,000 ML 1000 ML IV (10:07)
[2021-04-03 10:13] LABS: Absolute Lymphocyte Count 2.61 X10^3/uL (0.83-4.51); Absolute Neutrophil Count 12.2 X10^3/uL (2.0-7.7); Basophil# 0.06 X10^3/uL; Basophil% 0.4 % (0-1); Eosinophil# 0.04 X10^3/uL; Eosinophils% 0.2 % (0-5); Hemoglobin 16.4 g/dL (13.0-16.5); Lymphocyte # 2.61 X10^3/ul (0.83-4.51); Lymphocyte % 16.2 % (19-41); Mean Corp Hgb Conc 34.2 g/dL (32-36); Mean Corpuscular Hgb 31.7 pg (27.0-32.0); Mean Corpuscular Volume 92.8 fL (80-94); Mean Platelet Vol. 9.4 fl (6.2-12.0); Monocyte# 1.13 X10^3/uL; NRBC Flagged by Analyzer 0 % (0-5); Neutrophil # 12.22 X10^3/uL (2.7-7.7); Neutrophil % 75.9 % (47-70); Platelet Count 229 K/mm3 (150-450); RBC Distribution Width CV 13.1 % (11.6-14.6); RBC Distribution Width SD 44.5 fl (35.1-43.9); Red Blood Count 5.17 M/mm3 (4.6-6.2); White Blood Count 16.1 K/mm3 (4.4-11.0)
[2021-04-03 10:33] LABS: AST(SGOT) 22 U/L (15-37); Alanine Aminotransfer ALT/SGPT 33 U/L (16-61); Albumin, Serum 3.7 g/dL (3.2-5.0); Alkaline Phosphatase 106 U/L (45-117); Anion Gap 7 (5-15); BUN 8 mg/dL (7-18); BUN/Creat Ratio 7.8 RATIO (10-20); Calcium,Total 8.7 mg/dL (8.5-10.1); Chloride 109 mmol/L (98-107); Creatinine, Serum 1.02 mg/dL (0.70-1.30); EST Glomerular Filtration Rate 80 mL/min (>60); Est Glom Filt Rate - Afr Amer 97 mL/min (>60); Globulin 3.7 g/dL (2.2-4.2); Glucose 117 mg/dL (74-106); Potassium 3.7 mmol/L (3.5-5.1); Protein, Total 7.4 g/dL (6.4-8.2); Sodium Level 139 mmol/L (136-145); Troponin-I HS 6 pg/mL (3.0-78.0)
--- NOTE | 2021-04-03 10:48 | RAD_ITS ---
STUDY: X-RAY CHEST REASON FOR EXAM: Male, 55 years old. Chest pain TECHNIQUE: Single AP portable view of the chest. COMPARISON: Comparison is made with prior study of 06/28/2019. FINDINGS: There is hyperinflation of the lungs consistent with chronic obstructive lung disease (COPD). Stable mild linear scarring at the left lung base. There is no demonstrated pleural abnormality. Normal size heart. Normal mediastinum and maira. Normal visualized pulmonary arteries. Normal visualized aortic arch and descending thoracic aorta. Normal visualized thoracic spine. Normal visualized ribs, clavicles, and shoulders. There is no demonstrated abnormality of the visualized soft tissue structures of the upper abdomen. RAD/Chest 1 View (Portable) IMPRESSION: Hyperinflation. Stable mild linear scarring at the left lung base. Electronically Signed: Mejia Shah MD at 11:04 EST , Service support ,
[2021-04-03 11:12] VITALS: BP 129/82; PULSE 69; RESP 18; O2SAT 99
== END 2021-04-03 11:14 | disposition home or self-care (01) ==
PROVIDERS: Emergency Provider Emergency Medicine; PCP Family Medicine
DX: G35 Multiple sclerosis (principal); R07.89 Other chest pain; E78.5 Hyperlipidemia, unspecified; F41.9 Anxiety disorder, unspecified; Z79.899 Other long term (current) drug therapy; F17.290 Nicotine dependence, other tobacco product, uncomplicated
CPT/HCPCS: 71045; 80053; 84484; 85025; 93005; 96361; 96374; 99285; J7030

== ENCOUNTER 2021-12-13 06:16 | Day surgery (SDC) | payer BC, SELFPAY ==
[2021-12-13] VITALS (15 sets, daily range): BP systolic 101–120; BP diastolic 59–88; PULSE 55–69; RESP 16–18; TEMP 36.1–37.1; O2SAT 95–98; BMI 23.9
[2021-12-13] MEDS: Lactated Ringers 1,000 ML 15 ML IV (06:52)
--- NOTE | 2021-12-13 07:01 | HP.PCM_ITS ---
[facility] - General General Date of Service: 12/13/21 HPI Narrative CHRIST PINK, is a 55 M who presents for a surveillance colonoscopy today. He states that he will be his third colonoscopy having had 2 previously and each time polyps have been not detected. He believes that his last colonoscopy was done in [place] proximately 5 years ago. He denies abdominal pain bright red blood per rectum or melena. He denies any routine health problems. [facility] Medical History (Updated 12/13/21 @ 07:[address] Ashwin Magaña MD) Anxiety Arthritis COPD (chronic obstructive pulmonary disease) Erectile dysfunction History of echocardiogram History of hip fracture History of irregular heartbeat HLD (hyperlipidemia) Hypotension Lumbar radiculopathy Lung nodule Multiple sclerosis Panic attacks Pelvic fracture Smoker Wears glasses Home Medications sildenafil 100 mg tablet 100 mg PO PRN PRN ed 06/30/19 [History Last Taken Unknown] baclofen 10 mg tablet 10 mg PO PRN PRN muscles 04/03/21 [History Last Taken Unknown] multivitamin 1 tab PO DAILY 12/10/21 [History Last Taken Unknown] rosuvastatin 5 mg tablet 1 tab PO DAILY 12/10/21 [History Last Taken Unknown] Allergy/AdvReac Type Severity Reaction Status Date / Time Penicillins Allergy Severe PT UNSURE Verified 12/13/21 06:41 OF REACTION bee venom protein (honey bee) Allergy Anaphylaxis Verified 12/13/21 06:41 codeine AdvReac Nausea/Vom/ Verified 12/13/21 06:41 Diarrhea Family History Father Heart disease Hypertension High cholesterol Grandfather Aneurysm Skin cancer Grandmother Breast cancer Surgical History (Updated 12/10/21 @ 12:25 by Elsa Lyons) History of cardiac catheterization Hx of colonoscopy Hx of hammer toe correction Hx of left knee surgery Hx of toe surgery Social History household members: spouse current occupational status: employed Smoking Status: Current some day smoker tobacco type: cigars substance use type: does not use seatbelt use: always ROS Constitutional Constitutional: Reports systems reviewed and no addt'l complaints, except as documented Cardiovascular Cardiovascular: Denies chest pain Respiratory/Chest Respiratory/Chest: Denies shortness of breath at rest Gastrointestinal Gastrointestinal: Denies abdominal pain, change in bowel habits, hematochezia or melena Vital Signs Vital Signs Vital Signs: 12/13/21 06:42 12/13/21 06:43 Temperature 98.8 F Temperature Source Temporal Pulse Rate 69 Respiratory Rate 18 Respiratory Pattern Normal Blood Pressure 104/59 L Blood Pressure Mean 74 Blood Pressure Source Monitor Blood Pressure Position Semi-Fowlers Blood Pressure Location Right Arm Pulse Ox 95 Oxygen Delivery Method Room Air Weight Weight: 162 lb 3.2 oz Body Mass Index (BMI) 23.9 Physical Exam Const alert, oriented x3 and no apparent distress General Appearance: cooperative and comfortable Eyes General Eye: normal appearance of both eyes Neck General: normal visual inspection Chest inspection of chest normal Resp Effort and Inspection: able to speak in complete sentences and symmetric chest movement Auscultation: clear to auscultation bilaterally Cardio regular rate and regular rhythm GI soft to palpation, non-tender and non-distended Extremity no calf tenderness Neuro oriented x3 Psych thought process normal Assessment & Plan Assessment/Plan (1) Encounter for screening for malignant neoplasm of colon: (2) Personal history of colonic polyps: PLAN: 55-year-old gentleman with a personal history of colon polyps. I recommend to him a colonoscopy with possible biopsy or polypectomy as indicated. He is aware of the technique, benefit, risk and alternatives. He presents via open access today. We will proceed as noted. Ashwin Magaña M.D., F.A.C.S.
--- NOTE | 2021-12-13 07:30 | COLBX_PTH ---
PATIENT: CHRIST PINK LOC: EN U#:[id number] AGE/SX: 55/M ROOM: RE12/13/[address]: Dr. Ashwin Magaña MD : 1965 BED: DIS: 12/13/2021 SPEC #: [id number] RECD: 12/13/21 13:28 STATUS: MADISON CUELLARMarcellus #: [id number] ROBIN: 12/13/21 07:[address]: Ashwin Magaña DEPT: SURGICAL PATHOLOGY RECD BY: Tatiana Salcedo ENTERED: 12/16/21 11:53 SP TYPE: COLON BX OT DR: Dr. Darling Hogan MD Tissues: A - Descending colon B - Rectum, NOS C - Rectum, NOS Procedures: Surgery Specimen Level IV HEADER OPERATION: Colonoscopy ? open access (MOD) PRE-OP DIAGNOSIS: Screening, history of colonic polyps, TISSUE SUBMITTED: A ? Descending colon biopsy, B ? Rectum biopsy, C ? Rectum biopsy MICROSCOPIC DIAGNOSIS A. Descending colon, biopsy: Fragments of colonic mucosa, no pathologic diagnosis. B. Rectum, biopsy: Fragments of hyperplastic polyp. C. Rectum, biopsy: Fragments of hyperplastic polyp. MC:alexandra 12/17/2021 MICROSCOPIC DESCRIPTION Slides are reviewed. GROSS DESCRIPTION A - Received in fixative is one container labeled with the patient's name and designated biopsy descending colon. The specimen consists of two irregular fragments of light aiken soft tissue that in aggregate measure 0.6 x 0.3 x 0.1 cm. The specimen is totally submitted in one cassette. B - Received in fixative is one container labeled with the patient's name and designated biopsy rectum. The specimen consists of two irregular fragments of light aiken soft tissue that in aggregate measure 0.5 x 0.2 x 0.1 cm. The specimen is totally submitted in one cassette. C - Received in fixative is one container labeled with the patient's name and designated biopsy rectum. The specimen consists of multiple irregular fragments of light aiken soft tissue that in aggregate measure 1.2 x 0.3 x 0.1 cm. The specimen is totally submitted in one cassette. / MC:alexandra 12/16/2021 TC:1 CPT: 56642 x3
[2021-12-13] MEDS: Midazolam 5 MG/ML Syringe (07:35)
[2021-12-13] MEDS: DiphenhydrAMINE 50 MG/ML Syringe (07:50)
--- NOTE | 2021-12-13 08:17 | OP.COLON_ITS ---
Patient Name: Kristopher Morton Procedure Date: 12/13/2021 7:34 AM Date of : 1965 Age: 55 Procedure: Colonoscopy Indications: High risk colon cancer surveillance: Personal history of colonic polyps Providers: Ashwin Magaña MD Medicines: Midazolam 5 mg IV, Meperidine 100 mg IV, Diphenhydramine 12.5 mg IV Patient Profile: Last Colonoscopy: 5 years ago. Complications: No immediate complications. Procedure: Pre-Anesthesia Assessment: - Prior to the procedure, a History and Physical was performed, and patient medications and allergies were reviewed. The patient's tolerance of previous anesthesia was also reviewed. The risks and benefits of the procedure and the sedation options and risks were discussed with the patient. All questions were answered, and informed consent was obtained. Prior Anticoagulants: The patient has taken no previous anticoagulant or antiplatelet agents. ASA Grade Assessment: II - A patient with mild systemic disease. After reviewing the risks and benefits, the patient was deemed in satisfactory condition to undergo the procedure. After I obtained informed consent, the scope was passed under direct vision. Throughout the procedure, the patient's blood pressure, pulse, and oxygen saturations were monitored continuously. The Colonoscope was introduced through the anus and advanced to the cecum, identified by appendiceal orifice and ileocecal valve. The colonoscopy was somewhat difficult due to a tortuous colon. Successful completion of the procedure was aided by increasing the dose of sedation medication and using manual pressure. The patient tolerated the procedure well. The quality of the bowel preparation was fair. Moderate Sedation: Moderate (conscious) sedation was personally administered by the endoscopist. The following parameters were monitored: oxygen saturation, heart rate, blood pressure, and response to care. Total physician intraservice time was 20 minutes. Scope In: 7:42:29 AM Scope Withdrawal Time 0 hours 15 minutes 36 seconds Scope Out: 8:10:14 AM Total Procedure Duration Time 0 hours 27 minutes 45 seconds Findings: The digital rectal exam was normal. A 4 mm polyp was found in the proximal descending colon. The polyp was sessile. The polyp was removed with a cold biopsy forceps. Resection and retrieval were complete. A 5 mm polyp was found in the rectum. The polyp was sessile. The polyp was removed with a cold biopsy forceps. Resection and retrieval were complete. Three sessile polyps were found in the rectum. These polyps were removed with a cold biopsy forceps. Resection and retrieval were complete. Scattered diverticula were found in the sigmoid colon. Impression: - Preparation of the colon was fair. - One 4 mm polyp in the proximal descending colon, removed with a cold biopsy forceps. Resected and retrieved. - One 5 mm polyp in the rectum, removed with a cold biopsy forceps. Resected and retrieved. - Three polyps in the rectum, removed with a cold biopsy forceps. Resected and retrieved. - Diverticulosis in the sigmoid colon. Recommendation: - Discharge patient to home. - Resume previous diet. - Continue present medications. - Repeat colonoscopy in 5 years for surveillance based on pathology results. - Telephone my office for pathology results in 1 week. Consider MAC for next procedure Procedure Code(s): --- Professional --- 88431, Colonoscopy, flexible; with biopsy, single or multiple 83198, 57, Moderate sedation services provided by the same physician or other qualified health rn intensive care unit performing the diagnostic or therapeutic service that the sedation supports, requiring the presence of an independent trained observer to assist in the monitoring of the patient's level of consciousness and physiological status; initial 15 minutes of intraservice time, patient age 5 years or older Diagnosis Code(s): --- Professional --- Z86.010, Personal history of colonic polyps D12.4, Benign neoplasm of descending colon K62.1, Rectal polyp K57.30, Diverticulosis of large intestine without perforation or abscess without bleeding CPT copyright 2017 [employer]. All rights reserved. The codes documented in this report are preliminary and upon it telecom technician review may be revised to meet current compliance requirements. Ashwin Magaña MD 12/13/2021 8:17:10 AM This report has been signed electronically. Number of Addenda: 0 Note Initiated On: 12/13/2021 7:34 AM
--- NOTE | 2021-12-13 08:18 | OP.CCLET_ITS ---
12/13/2021 Darling Hogan [place] [id number] [place] [address] Re : Colonoscopy procedure for Kristopher Morton Dear Dr. Hogan This procedure was performed on Monday, December 13, 2021. My impressions and recommendations are as follows: Impressions : - Preparation of the colon was fair. - One 4 mm polyp in the proximal descending colon, removed with a cold biopsy forceps. Resected and retrieved. - One 5 mm polyp in the rectum, removed with a cold biopsy forceps. Resected and retrieved. - Three polyps in the rectum, removed with a cold biopsy forceps. Resected and retrieved. - Diverticulosis in the sigmoid colon. Recommendations : - Discharge patient to home. - Resume previous diet. - Continue present medications. - Repeat colonoscopy in 5 years for surveillance based on pathology results. - Telephone my office for pathology results in 1 week. Consider MAC for next procedure My findings are described in the full procedure note, which is enclosed. If I can be of further assistance, please feel free to contact me at Doctor phone number(s): Work: . Sincerely, Ashwin Magaña MD 12/13/2021 8:17:10 AM This report has been signed electronically.
== END 2021-12-13 08:57 | disposition home or self-care (01) ==
LOC: EN 06:17 → AC 06:29
PROVIDERS: PCP Family Medicine; Referring Provider Family Medicine; Visit Provider Surgery
PROC: 0DJD8ZZ Inspection of Lower Intestinal Tract, Via Natural or Artificial Opening Endoscopic (ICD-10-PCS; CPT 45378; principal; 2021-12-13 07:25)
DX: Z12.11 Encounter for screening for malignant neoplasm of colon (principal); G35 Multiple sclerosis; J44.9 Chronic obstructive pulmonary disease, unspecified; K62.1 Rectal polyp; Z86.010 Personal history of colon polyps; F41.9 Anxiety disorder, unspecified; M19.90 Unspecified osteoarthritis, unspecified site; E78.5 Hyperlipidemia, unspecified; M54.16 Radiculopathy, lumbar region; Z79.899 Other long term (current) drug therapy; F17.290 Nicotine dependence, other tobacco product, uncomplicated; K57.30 Diverticulosis of large intestine without perforation or abscess without bleeding
CPT/HCPCS: 45380; 88305; 99152; 99153; J7120

== ENCOUNTER → 2022-02-04 | Outpatient (CLI) | payer BC, SELFPAY ==
[2022-02-16 15:07] LABS: Lyme IgG P18 Ab Absent (.); Lyme IgG P23 Ab Absent (.); Lyme IgG P28 Ab Absent (.); Lyme IgG P30 Ab Absent (.); Lyme IgG P39 Ab Absent (.); Lyme IgG P41 Ab Absent (.); Lyme IgG P45 Ab Absent (.); Lyme IgG P58 Ab Absent (.); Lyme IgG P66 Ab Absent (.); Lyme IgG P93 Ab Absent (.); Lyme IgM P23 Ab Present (.); Lyme IgM P39 Ab Absent (.); Lyme IgM P41 Ab Absent (.)
[2022-02-17 08:47] LABS: Lyme IgG WB Interpretation Negative (.); Lyme IgM WB Interpretation Negative (.)
== END | disposition home or self-care (01) ==
LOC: MTLAB 16:05
PROVIDERS: PCP Family Medicine; Referring Provider Family Medicine; Visit Provider Family Medicine
DX: M25.50 Pain in unspecified joint (principal)
CPT/HCPCS: 36415; 86617

== ENCOUNTER → 2022-11-05 | Outpatient (CLI) | payer BC, SELFPAY ==
[2022-11-05 18:12] LABS: Absolute Lymphocyte Count 2.31 X10^3/uL (0.83-4.51); Absolute Neutrophil Count 3.7 X10^3/uL (2.0-7.7); Basophil# 0.03 X10^3/uL; Basophil% 0.4 % (0-1); Eosinophil# 0.09 X10^3/uL; Eosinophils% 1.3 % (0-5); Hematocrit 43.2 % (40-54); Hemoglobin 14.4 g/dL (13.0-16.5); Lymphocyte # 2.31 X10^3/ul (0.83-4.51); Lymphocyte % 33.7 % (19-41); Mean Corp Hgb Conc 33.3 g/dL (32-36); Mean Corpuscular Hgb 31.1 pg (27.0-32.0); Mean Corpuscular Volume 93.3 fL (80-94); Mean Platelet Vol. 10.1 fl (6.2-12.0); Monocyte# 0.72 X10^3/uL; Monocyte% 10.5 % (0-10); NRBC Flagged by Analyzer 0 % (0-5); Neutrophil # 3.69 X10^3/uL (2.7-7.7); Platelet Count 202 K/mm3 (150-450); RBC Distribution Width CV 12.3 % (11.6-14.6); RBC Distribution Width SD 42.3 fl (35.1-43.9); Red Blood Count 4.63 M/mm3 (4.6-6.2); White Blood Count 6.9 K/mm3 (4.4-11.0)
[2022-11-05 19:01] LABS: Anion Gap 5 (5-15); BUN 10 mg/dL (7-18); BUN/Creat Ratio 11.2 RATIO (10-20); Calcium,Total 8.9 mg/dL (8.5-10.1); Chloride 113 mmol/L (98-107); EST Glomerular Filtration Rate 92 mL/min (>60); Est Glom Filt Rate - Afr Amer 112 mL/min (>60); Glucose 130 mg/dL (74-106); Sodium Level 141 mmol/L (136-145)
== END | disposition home or self-care (01) ==
LOC: BFHLAB 14:31
PROVIDERS: PCP Nurse Practitioner Family; Referring Provider Nurse Practitioner Family; Visit Provider Nurse Practitioner Family
DX: R19.7 Diarrhea, unspecified (principal)
CPT/HCPCS: 36415; 80048; 85025

== ENCOUNTER → 2022-11-06 | Outpatient (CLI) | payer BC, SELFPAY | END | disposition home or self-care (01) | LOC: LABSPEC 08:25 | PROVIDERS: PCP Nurse Practitioner Family; Referring Provider Nurse Practitioner Family; Visit Provider Nurse Practitioner Family | DX: R19.7 Diarrhea, unspecified (principal) | CPT/HCPCS: 36415; 83630; 87177; 87209; 87493; 87506 ==

== ENCOUNTER 2022-12-31 15:11 | Emergency (ER) | payer BC, SELFPAY ==
[2022-12-31] VITALS (21 sets, daily range): BP systolic 110–140; BP diastolic 71–93; PULSE 74–89; RESP 14–27; TEMP 36.6; O2SAT 95–100; BMI 24.2
--- NOTE | 2022-12-31 15:42 | EKG12_ITS ---
Test Reason : CP Blood Pressure : / mmHG Vent. Rate : 084 BPM Atrial Rate : 084 BPM P-R Int : 162 ms QRS Dur : 096 ms QT Int : 378 ms P-R-T Axes : 078 087 057 degrees QTc Int : 446 ms Normal sinus rhythm Right atrial enlargement Incomplete right bundle branch block Borderline ECG Confirmed by TANISHA RODRIGUEZ, MAGGIE ([id number]), editorial intern PANDA MELENDEZ ([id number]) on 01/05/2023 8:08:02 AM Referred By: Confirmed By:JUAN RAMON GARAY MD
--- NOTE | 2022-12-31 15:45 | RAD_ITS ---
STUDY: X-RAY CHEST REASON FOR EXAM: Male, 57 years old. Chest pain TECHNIQUE: Single AP portable view of the chest. COMPARISON: Comparison is made with prior study dated April 03, 2021. FINDINGS: EKG electrodes are seen. Stable mild increased markings in the lingular segment of the left upper lobe and right middle lobe suggestive of scarring. There is no demonstrated pleural abnormality. Normal size heart. Normal mediastinum and maira. Normal visualized pulmonary arteries. Normal visualized aortic arch and descending thoracic aorta. Normal visualized thoracic spine. Normal visualized ribs, clavicles, and shoulders. There is no demonstrated abnormality of the visualized soft tissue structures of the upper abdomen. RAD/Chest 1 View (Portable) IMPRESSION: Stable scarring at the lung bases. Electronically Signed: Mejia Shah MD at 15:57 EDT ,
--- NOTE | 2022-12-31 15:48 | ED.VIS.CHEST ---
HPI History of Present Illness Chief Complaint: Chest Pain Narrative Narrative: 7-year-old male with history of MS, hyperlipidemia presenting with chest pressure which started while he was at work. He states he felt lightheaded. He states he was helped to sit down. Patient thought it was due to stress at work because a lot of people are being fired.. Patient states that pressure in the front of his chest radiated to his back. He still has this mildly. Patient has recent travel by plane ride in the last 2 weeks. He does not describe it as sharp pleuritic pain. No fever, chills, cough. He was nauseous but currently is not. [facility] Medical History Anxiety Arthritis COPD (chronic obstructive pulmonary disease) Erectile dysfunction History of echocardiogram History of hip fracture History of irregular heartbeat HLD (hyperlipidemia) Hypotension Lumbar radiculopathy Lung nodule Multiple sclerosis Panic attacks Pelvic fracture Smoker Wears glasses Home Medications multivitamin 1 tab PO DAILY 12/10/21 [History Last Taken Unknown] rosuvastatin 5 mg tablet 1 tab PO DAILY 12/10/21 [History Last Taken Unknown] Allergy/AdvReac Type Severity Reaction Status Date / Time Penicillins Allergy Severe PT UNSURE Verified 12/31/22 15:16 OF REACTION bee venom protein (honey bee) Allergy Anaphylaxis Verified 12/31/22 15:16 codeine AdvReac Nausea/Vom/ Verified 12/31/22 15:16 Diarrhea Family History Father Heart disease Hypertension High cholesterol Grandfather Aneurysm Skin cancer Grandmother Breast cancer Surgical History History of cardiac catheterization Hx of colonoscopy Hx of hammer toe correction Hx of left knee surgery Hx of toe surgery Social History household members: spouse current occupational status: employed Smoking Status: Light Smoker (<10/day) substance use type: does not use seatbelt use: always ROS ROS ED Constitutional Constitutional ED: Denies chills, fever(s) or sweats Eyes Eyes: Denies blurry vision or change in vision ENT ENT ED: Denies ear pain or sore throat Cardiovascular Cardiovascular: Reports chest pain, palpitations and other Details: Lightheaded ; Denies racing heartbeat Respiratory/Chest Respiratory/Chest: Denies cough, dyspnea or sputum Gastrointestinal Gastrointestinal: Denies abdominal pain, constipation, diarrhea, nausea or vomiting Genitourinary Genitourinary ED: Denies dysuria, hematuria or urinary frequency Musculoskeletal Musculoskeletal: Denies arthralgias, myalgias or neck pain Integumentary Denies abscess, Abrasions or rash Neurologic Neurologic: Denies headache(s), paresthesias or weakness Psychiatric Psychiatric: Denies anxiety, depression, suicidal ideation or suicidal thoughts Endocrine Endocrinology: Denies polydipsia or polyuria EXAM Physical Exam Const Vital Signs: 12/31/22 15:12 12/31/22 15:14 12/31/22 15:11 Temperature 97.8 F Temperature Source Temporal Pulse Rate 87 Respiratory Rate 19 H Respiratory Effort Normal Non-Labored Blood Pressure 138/87 H Blood Pressure Mean 104 Pulse Ox 100 Oxygen Delivery Method Room Air 12/31/22 15:44 12/31/22 15:58 12/31/22 16:03 Temperature Temperature Source Pulse Rate 76 85 Respiratory Rate Respiratory Effort Blood Pressure 135/76 H 127/72 H Blood Pressure Mean Pulse Ox Oxygen Delivery Method Room Air 12/31/22 15:45 12/31/22 15:50 12/31/22 15:57 Temperature Temperature Source Pulse Rate 77 74 78 Respiratory Rate 14 17 15 Respiratory Effort Blood Pressure 140/79 H 135/76 H Blood Pressure Mean 99 88 Pulse Ox 98 98 98 Oxygen Delivery Method Room Air 12/31/22 16:00 12/31/22 16:05 12/31/22 16:10 Temperature Temperature Source Pulse Rate 86 88 88 Respiratory Rate 17 19 H 26 H Respiratory Effort Blood Pressure 121/84 H 117/73 110/71 Blood Pressure Mean 96 86 83 Pulse Ox 97 96 95 Oxygen Delivery Method Room Air 12/31/22 16:20 12/31/22 16:30 12/31/22 16:40 Temperature Temperature Source Pulse Rate 74 89 80 Respiratory Rate 22 H 20 H 22 H Respiratory Effort Blood Pressure 117/81 H Blood Pressure Mean 94 Pulse Ox 96 98 98 Oxygen Delivery Method 12/31/22 16:51 12/31/22 17:00 12/31/22 17:00 Temperature Temperature Source Pulse Rate 78 81 Respiratory Rate 17 14 Respiratory Effort Blood Pressure 140/72 H 120/74 120/74 Blood Pressure Mean 91 89 89 Pulse Ox 97 99 Oxygen Delivery Method 12/31/22 17:16 12/31/22 17:20 12/31/22 17:30 Temperature Temperature Source Pulse Rate 80 83 Respiratory Rate 15 19 H Respiratory Effort Blood Pressure 130/93 H Blood Pressure Mean 106 Pulse Ox 98 99 Oxygen Delivery Method 12/31/22 17:40 12/31/22 17:50 12/31/22 18:00 Temperature Temperature Source Pulse Rate 75 76 75 Respiratory Rate 27 H 26 H 21 H Respiratory Effort Blood Pressure 121/71 H Blood Pressure Mean 88 Pulse Ox 99 98 Oxygen Delivery Method Positive well nourished General Appearance ED: Negative for pallor HEENT Reports moist mucous membranes normocephalic and atraumatic Eyes PERRL and EOMs intact bilaterally Resp normal respiratory effort and clear to auscultation bilaterally Auscultation: Negative for rales, rhonchi or wheezes Cardio regular rate and regular rhythm GI normal to inspection, nondistended, normoactive bowel sounds Extremity normal to inspection Neuro oriented x3, CN's II-XII intact bilaterally and no sensory deficits noted Sensorium / Orientation: awake and alert Psych Mood & Affect: anxious Skin no rashes or lesions noted General Skin Exam: Negative for jaundice or pallor Heart Score History: Slightly/Non-Suspicious ECG: Normal Age: >45 - <65 years Risk Factors: 1 or 2 Risk Factors Troponin: </= Normal Limit Score: 2 MDM MDM MDM Narrative Medical decision making narrative: 57-year-old male presented with chest pain which feels like pressure radiating from the center of his chest to his back. Had pain like this before. Differential includes acute coronary syndrome, PE, pneumonia, pneumothorax, costochondritis. Okay I will obtain a CBC to assess white blood cell count, hemoglobin, renal function electrolytes. EKG and high-sensitivity troponin shows your ischemia and dysrhythmia. Chest x-ray to rule out pneumonia, pneumothorax although the patient does have equal/breath sounds and chest wall rise. Will obtain a D-dimer as well to assess for PE. Patient was given nitroglycerin trial to be still having chest pressure. EKG shows a normal sinus rhythm with ventricular rate of 84 bpm with incomplete right bundle branch block on my interpretation. EMS EKG looks similar on my interpretation however the heart rate is 87 bpm. During my interpretation shows no acute process. The radiologist interprets this and agrees. CBC and BMP are unremarkable. High-sensitivity troponin 12 and delta troponin 12. Patient had a D-dimer which is elevated at 60. CTA of the chest was negative for acute findings. At this point I feel the patient stable for discharge home. Return precautions were discussed. I recommend he follow-up with his neurologist and his primary care. Impression: 1. Chest pain Lab Data Labs: Laboratory Results - last 24 hr 12/31/22 12/31/22 15:16 17:45 WBC 9.5 RBC 5.82 Hgb 17.2 H Hct 51.6 MCV 88.7 MCH 29.6 MCHC 33.3 RDW Std Deviation 42.5 RDW Coeff of Steve 13.2 Plt Count 230 MPV 9.6 Immature Gran % (Auto) 0.300 Neut % (Auto) 52.3 Lymph % (Auto) 37.5 [place] % (Auto) 8.4 Eos % (Auto) 1.0 Baso % (Auto) 0.5 Absolute Neuts (auto) 5.0 Absolute Lymphs (auto) 3.58 Nucleated RBC % 0 D-Dimer Quant (PE/DVT) 0.60 H* Sodium 140 Potassium 3.9 Chloride 108 H Carbon Dioxide 24.0 Anion Gap 8 BUN 13 Creatinine 1.06 Estim Creat Clear Calc 75.04 Est GFR (MDRD) Af Amer 92 Est GFR (MDRD) Non-Af 76 BUN/Creatinine Ratio 12.3 Glucose 101 Calcium 9.1 Troponin I High Sens 12 12 Radiography Diagnostic Testing: Clinical Impression(s) from Imaging Studies Chest X-Ray 12/31/22 15:45 IMPRESSION: Stable scarring at the lung bases. Electronically Signed: Mejia Shah MD at 15:57 EDT , Chest CTA 12/31/22 16:53 IMPRESSION: Normal CTA chest examination, without a demonstrated pulmonary embolism or arterial dissection. There are findings consistent with COPD. There is no evidence of acute chest disease. Electronically Signed: Herbie Li MD at 17:43 EDT , Discharge Plan Triage Chief Complaint: Chest Pain ED Provider: Ralph Gonzalez Dx/Rx/DC Orders Instructions: ED Chest Pain, Noncardiac Prescriptions: No Action multivitamin Tablet 1 tab PO DAILY rosuvastatin 5 mg tablet 1 tab PO DAILY Patient Comments: TAKE 1 TABLET BY MOUTH ONCE DAILY Primary Care Provider: Darling Hogan Referrals: Darling Hogan MD [Primary Care Provider] - Disposition Disposition: Home, Self Care
[2022-12-31 15:52] LABS: Absolute Lymphocyte Count 3.58 X10^3/uL (0.83-4.51); Basophil# 0.05 X10^3/uL; Basophil% 0.5 % (0-1); Hematocrit 51.6 % (40-54); Hemoglobin 17.2 g/dL (13.0-16.5); Lymphocyte # 3.58 X10^3/ul (0.83-4.51); Lymphocyte % 37.5 % (19-41); Mean Corp Hgb Conc 33.3 g/dL (32-36); Mean Corpuscular Hgb 29.6 pg (27.0-32.0); Mean Corpuscular Volume 88.7 fL (80-94); Mean Platelet Vol. 9.6 fl (6.2-12.0); Monocyte% 8.4 % (0-10); NRBC Flagged by Analyzer 0 % (0-5); Neutrophil # 4.98 X10^3/uL (2.7-7.7); Neutrophil % 52.3 % (47-70); Platelet Count 230 K/mm3 (150-450); RBC Distribution Width CV 13.2 % (11.6-14.6); RBC Distribution Width SD 42.5 fl (35.1-43.9); Red Blood Count 5.82 M/mm3 (4.6-6.2); White Blood Count 9.5 K/mm3 (4.4-11.0)
[2022-12-31] MEDS: Nitroglycerin SL (ED/IMG/CATH) 0.4 MG TABLET SL ×2 (15:58→16:03)
[2022-12-31 16:23] LABS: Anion Gap 8 (5-15); BUN 13 mg/dL (7-18); BUN/Creat Ratio 12.3 RATIO (10-20); Calcium,Total 9.1 mg/dL (8.5-10.1); Chloride 108 mmol/L (98-107); Creatinine, Serum 1.06 mg/dL (0.70-1.30); EST Glomerular Filtration Rate 76 mL/min (>60); Est Glom Filt Rate - Afr Amer 92 mL/min (>60); Estimated Creatinine Clearance 75.04 ml/min; Glucose 101 mg/dL (74-106); Potassium 3.9 mmol/L (3.5-5.1); Sodium Level 140 mmol/L (136-145); Troponin-I HS (w/2H Reflex) 12 pg/mL (3.0-78.0)
--- NOTE | 2022-12-31 16:53 | CT_ITS ---
STUDY: CTA CHEST REASON FOR EXAM: Male, 57 years old. chest pain RADIATION DOSAGE (If Supplied By Facility): CTDIvol = ( 8.53 ) mGy, DLP = ( 273.36 ) mGycm TECHNIQUE: The examination was performed with the intravenous administration of IV 100mL Isovue-370. Post-processing of the angiographic images was performed, with multiplanar reformation and 3D reconstruction. Individualized dose optimization techniques were used for this CT. COMPARISON: None. FINDINGS: Normal enhancement of the main pulmonary artery and right and left pulmonary arteries. Normal enhancement of the bilateral peripheral pulmonary arteries. There is no demonstrated pulmonary embolism. Normal thoracic aorta and visualized great vessels. There is no demonstrated aortic dissection. Normal heart and pericardium. Normal mediastinum. Normal hilar regions. Normal visualized trachea and bronchi. The lungs are hyper expanded, with flattening of the hemidiaphragms. Normal pulmonary parenchyma. Normal pleura. Normal chest wall structures. Normal osseous structures. Normal visualized upper abdomen. CT/CTA Chest W/WO Contrast IMPRESSION: Normal CTA chest examination, without a demonstrated pulmonary embolism or arterial dissection. There are findings consistent with COPD. There is no evidence of acute chest disease. Electronically Signed: Herbie Li MD at 17:43 EDT ,
[2022-12-31 17:47] LABS: Reflex Troponin-HS? (from REC) Y
[2022-12-31 18:20] LABS: Troponin-I HS 12 pg/mL (3.0-78.0)
== END 2022-12-31 18:57 | disposition home or self-care (01) ==
PROVIDERS: Emergency Provider Student in an Organized Health Care Education/Training Program; PCP Family Medicine; Visit Provider Student in an Organized Health Care Education/Training Program
DX: R07.9 Chest pain, unspecified (principal); G35 Multiple sclerosis; F17.200 Nicotine dependence, unspecified, uncomplicated; E78.5 Hyperlipidemia, unspecified; Z79.899 Other long term (current) drug therapy
CPT/HCPCS: 71045; 71275; 80048; 84484; 85025; 85379; 93005; 99285; Q9967; A4216